=== PATIENT | male | born 1965 | race Caucasian/White ===

== ENCOUNTER → 2018-05-23 | Outpatient (CLI) | payer OTHER | END | disposition home or self-care (01) | LOC: LAB 13:20 | PROVIDERS: ATTEND Internal Medicine Cardiovascular Disease | DX: R00.0 Tachycardia, unspecified (principal) | CPT/HCPCS: 84443 ==

== ENCOUNTER 2019-02-03 21:23 | Inpatient (IN) | payer SELFPAY ==
[~2019-02-03] VITALS: Ht 167.6 cm; Wt 95.4 kg
[2019-02-03 22:00] LABS: BASO # 0.1 x10^3/uL (0.0-0.2); BASO % 1 % (0-3); EOS # 0.4 x10^3/uL (0.0-0.7); EOS % 3 % (0-3); HEMATOCRIT 44.4 % (39.0-53.0); HEMOGLOBIN 15.1 g/dL (13.0-17.5); LYMPH # 2.9 x10^3/uL (1.0-4.8); LYMPH % 23 % (24-48); MEAN CORPUSCULAR HEMOGLOBIN 31 pg (25-35); MEAN CORPUSCULAR HGB CONC 34 g/dL (31-37); MEAN CORPUSCULAR VOLUME 90 fL (79-100); MONO # 1.5 x10^3/uL (0.0-1.1); MONO % 12 % (0-9); NEUT # 7.7 x10^3uL (1.8-7.7); NEUT % 61 % (31-73); PLATELET COUNT 206 x10^3/uL (140-400); RED BLOOD COUNT 4.95 x10^6/uL (4.30-5.70); RED CELL DISTRIBUTION WIDTH 14.5 % (11.5-14.5); WHITE BLOOD COUNT 12.6 x10^3/uL (4.0-11.0)
[2019-02-03] MEDS ORDERED: IV NORMAL SALINE 1,000ML 1,000 ML IV ONE (22:00)
--- NOTE | 2019-02-03 22:02 | PHYS DOC ---
Past History Past Medical History: Diabetes, Pancreatitis Past Surgical History: Appendectomy Alcohol Use: Occasionally Drug Use: None Adult General Chief Complaint Chief Complaint: GI PROBLEM HPI HPI 53-year-old male presents with epigastric pain that he describes as a cramping, moderate in severity. The patient started having pain after drinking Lefty Antonio on Saturday. The patient does not normally drink every day. He had pancreatitis several months ago after drinking alcohol. He is concerned this could be pancreatitis again. Denies vomiting but does have nausea. The patient is diabetic. He has been taking his medications, but states he has not been checking his blood sugar because he ran out of strips. He denies fever or chills. Denies diarrhea or constipation. Review of Systems Review of Systems Constitutional: Denies fever or chills [] Eyes: Denies change in visual acuity, redness, or eye pain [] HENT: Denies nasal congestion or sore throat [] Respiratory: Denies cough or shortness of breath [] Cardiovascular: No additional information not addressed in HPI [] GI: Epigastric abdominal pain, nausea. Denies vomiting, bloody stools or diarrhea [] : Denies dysuria or hematuria [] Musculoskeletal: Denies back pain or joint pain [] Integument: Denies rash or skin lesions [] Neurologic: Denies headache, focal weakness or sensory changes [] Endocrine: Denies polyuria or polydipsia [] All other systems were reviewed and found to be within normal limits, except as documented in this note. Current Medications Current Medications Current Medications Medications (Trade) Dose Ordered Sig/Rani Start Time Stop Time Status Last Admin Dose Admin Sodium Chloride 1,000 ml @ 1,000 mls/hr 1X ONCE 02/03/19 22:00 02/03/19 22:59 02/03/19 21:49 1,000 MLS/HR Allergies Allergies Allergies Coded Allergies Type Severity Reaction Last Updated Verified No Known Drug Allergies 02/03/19 No Physical Exam Physical Exam Constitutional: Well developed, well nourished, no acute distress, non-toxic appearance. [] HENT: Normocephalic, atraumatic, bilateral external ears normal, oropharynx moist, no oral exudates, nose normal. [] Eyes: PERRLA, EOMI, conjunctiva normal, no discharge. [] Neck: Normal range of motion, no tenderness, supple, no stridor. [] Cardiovascular:Heart rate regular rhythm, no murmur [] Lungs & Thorax: Bilateral breath sounds clear to auscultation [] Abdomen: Bowel sounds normal, soft, mild epigastric tenderness, no masses, no pulsatile masses. [] Skin: Warm, dry, no erythema, no rash. [] Back: No tenderness, no CVA tenderness. [] Extremities: No tenderness, no cyanosis, no clubbing, ROM intact, no edema. [] Neurologic: Alert and oriented X 3, normal motor function, normal sensory function, no focal deficits noted. [] Psychologic: Affect normal, judgement normal, mood normal. [] Current Patient Data Vital Signs Vital Signs Date Time Temp Pulse Resp B/P (MAP) Pulse Ox O2 Delivery O2 Flow Rate FiO2 02/03/19 21:28 99.1 111 18 95 Room Air EKG EKG [] Radiology/Procedures Radiology/Procedures [] Course & Med Decision Making Course & Med Decision Making Pertinent Labs and Imaging studies reviewed. (See chart for details) The patient's labs significant for an elevated blood sugar of 150. His lipase is also over 2000. This appears to be pancreatitis. He does not have a fever. I given the patient Zofran for his nausea and morphine for pain. I will place standing orders for him for his admission. I discussed the patient with Dr. Rolle and he has accepted the patient for admission. [] Dragon Disclaimer Dragon Disclaimer This electronic medical record was generated, in whole or in part, using a voice recognition dictation system. Departure Departure: Impression: Primary Impression: Pancreatitis Disposition: ADMITTED INPATIENT Admitting Physician: Breanna Rolle Condition: STABLE Referrals: GEOVANNA BAUTISTA MD (PCP) Problem Qualifiers Primary Impression: Pancreatitis Chronicity: acute Pancreatitis type: alcohol induced Acute pancreatitis complication: unspecified Qualified Codes: K85.20 - Alcohol induced acute pancreatitis without necrosis or infection RENETTA MADDEN DO Feb 03, 2019 22:02
[2019-02-03 22:07] LABS: BILIRUBIN,URINE NEG (NEG); CLARITY,URINE CLEAR; COLOR,URINE YELLOW; GLUCOSE,URINE NEG (NEG); NITRITE,URINE NEG (NEG); UROBILINOGEN,URINE 1 mg/dL (0.2 mg/dL)
[2019-02-03 22:13] LABS: ALBUMIN 3.5 g/dL (3.4-5.0); ALBUMIN/GLOBULIN RATIO 0.9 (1.0-1.7); CREATININE 0.9 mg/dL (0.7-1.3); POTASSIUM 4.4 mmol/L (3.5-5.1); TOTAL BILIRUBIN 0.3 mg/dL (0.2-1.0); TOTAL PROTEIN 7.2 g/dL (6.4-8.2)
[2019-02-03] MEDS ORDERED: ONDANSETRON PF 4 MG/2 ML VIAL. IV ONE (22:15)
[2019-02-03] MEDS ORDERED: MORPHINE SULFATE 2 MG/ML DISP.SYRIN. IV ONE (22:15)
[2019-02-03 22:17] LABS: BACTERIA,URINE 0 /HPF (0-FEW); RBC,URINE 0 /HPF (0-2); SQUAMOUS EPITHELIAL CELL,UR OCC /LPF; WBC,URINE 0 /HPF (0-4)
[2019-02-03] MEDS: IV NORMAL SALINE 1,000ML 1,000 ML IV SCH (22:53)
[2019-02-03] MEDS ORDERED: ONDANSETRON PF 4 MG/2 ML VIAL. IV PRN (23:00)
[2019-02-03] MEDS ORDERED: MORPHINE SULFATE 4 MG/ML DISP.SYRIN. IV ONE (23:45)
[2019-02-04 00:12] VITALS: BP 136/89
[2019-02-04] MEDS ORDERED: GLIP5TAB10 PO (00:22)
[2019-02-04] MEDS ORDERED: DIVA500T2 PO (00:22)
[2019-02-04] MEDS ORDERED: METF500T16 PO (00:22)
[2019-02-04] MEDS ORDERED: PIOG30TA62 PO (00:22)
[2019-02-04] MEDS ORDERED: SIMV40TA3 PO (00:22)
[2019-02-04] MEDS ORDERED: METF10007 PO (00:22)
[2019-02-04] MEDS ORDERED: LISI2.5T PO (00:22)
[2019-02-04] MEDS ORDERED: FLUO20CA8 PO (00:22)
[2019-02-04] MEDS: MORPHINE SULFATE 4 MG/ML DISP.SYRIN. IV PRN ×6 (01:07→20:42)
[2019-02-04 06:23] VITALS: BP 129/76
[2019-02-04] MEDS: IV NORMAL SALINE 1,000ML 1,000 ML IV SCH ×3 (06:28→20:41)
[2019-02-04 11:17] VITALS: BP 120/81
[2019-02-04] MEDS ORDERED: IOHEXOL 240 MG/ML 50ML VIAL. ONE (11:55)
--- NOTE | 2019-02-04 13:25 | HP ---
ADMIT DATE: 02/03/2019 HISTORY OF PRESENT ILLNESS: A 53-year-old male came in through the Emergency Room with abdominal pain. The patient had marked bloating, distention of his abdominal pain, epigastric pain and drinking fairly heavily with Lefty toure couple of days before. 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 In any case, the patient came in, he was admitted to the hospital for further evaluation. The patient is a diabetic. The patient had some nausea, but no vomiting. PAST MEDICAL HISTORY: Pancreatitis, bipolar, ED, hypertension, diabetes, alcohol abuse, tobacco abuse. ALLERGIES: No known drug allergies. MEDICATIONS: Zocor 40, lisinopril 2.5, Depakote 500 daily, Prozac 20, metformin 1000, pioglitazone 30. The patient otherwise continued to be monitored carefully, make further evaluation on that aspect. FAMILY HISTORY: Noncontributory. REVIEW OF SYSTEMS: Positive for abdominal pain with some nausea. Otherwise, denies chest pain, shortness of breath. Denies headaches, visual change, blurred vision, double vision. Denies any melena, hematochezia, hematemesis and neurologically baseline. PHYSICAL EXAMINATION: GENERAL: Pleasant white male, in moderate amount of distress. VITAL SIGNS: Blood pressure 120/80, respiratory rate 20, pulse 92, afebrile. HEENT: The patient's head was atraumatic, normocephalic. Eyes: PERRLA without jaundice. The mouth and throat were normal. NECK: Supple. LUNGS: Clear. CARDIOVASCULAR: Regular sinus rhythm. ABDOMEN: Markedly protuberant, soft, but tender in the epigastric area with slight guarding, but no rebounding, positive bowel sounds, overall bloating and distention noted. EXTREMITIES: No clubbing, cyanosis or edema. NEUROLOGIC: The patient was alert and oriented x 3. PLAN: The patient will be admitted for further evaluation and treatment thereof of his acute pancreatitis, keep him n.p.o. For the most part clear liquids, perhaps fluids, pain management and monitor electrolytes and make further evaluation, get CT scan of his abdomen and pelvis. GEOVANNA BAUTISTA MD DR: CLAUDIA/merlyn JOB#: [id number] / [id number]
[2019-02-04 13:43] LABS: BARBITURATES NEG (NEG); BENZODIAZEPINES NEG (NEG); CANNABINOIDS NEG (NEG); COCAINE NEG (NEG); METHADONE NEG (NEG); OPIATES POS (NEG); PHENCYCLIDINE NEG (NEG)
[2019-02-04] MEDS: FLUoxetine HCL 20 MG CAPSULE PO SCH (13:43)
[2019-02-04] MEDS: DIVALPROEX ER 500 MG TAB.ER.24H PO SCH (13:44)
[2019-02-04 13:45] LABS: AMPHETAMINE/METHAMPHETAMINE NEG (NEG)
--- NOTE | 2019-02-04 14:20 | RAD ---
PQRS Compliance statement: One or more of the following individualized dose reduction techniques were utilized for this examination: 1. Automated exposure control. 2. Adjustment of the mA and/or kV according to patient size. 3. Use of iterative reconstruction technique. Indication:Abdominal pain. TECHNIQUE: CT abdomen and pelvis without IV contrast with multiplanar reformats. COMPARISON: None FINDINGS: Limited evaluation of solid abdominal and pelvic organs due to lack of IV contrast. Heart is normal in size. No pericardial or pleural effusion. Mild scarring or subsegmental atelectasis in the lung bases. Noncontrast appearance of the liver, spleen, gallbladder, adrenals and right kidney within normal limits. Simple cyst in the left kidney measuring 2.2 cm. Edema is seen in the pancreatic tail and peripancreatic soft tissue. No peripancreatic fluid collection. No enlarged retroperitoneal or pelvic adenopathy. No free pelvic fluid or ascites. The prostate and seminal vesicles show no large mass. Moderate right inguinal hernia is seen containing fat and small bowel. Small fat-containing left inguinal hernia. No bowel obstruction. Urinary bladder within normal limits. No pneumoperitoneum. No suspicious bony lesion. IMPRESSION: Limited evaluation of solid abdominal and pelvic organs due to lack of IV contrast. 1. Findings of acute interstitial edematous pancreatitis involving pancreatic tail. 2. Moderate-sized right inguinal hernia containing distal small bowel and fat. No bowel obstruction. Electronically signed by: Gurdeep Melara DO (02/04/2019 2:17 PM) [facility]
[2019-02-04 15:03] VITALS: BP 128/82
[2019-02-04 19:58] VITALS: BP 134/82
[2019-02-04 22:59] VITALS: BP 118/78
[2019-02-05] MEDS ORDERED: IV NORMAL SALINE 1,000ML 1,000 ML IV SCH (04:00)
[2019-02-05 06:07] VITALS: BP 147/87
[2019-02-05 06:23] LABS: BASO % 1 % (0-3); EOS # 0.3 x10^3/uL (0.0-0.7); EOS % 4 % (0-3); HEMATOCRIT 37.4 % (39.0-53.0); HEMOGLOBIN 12.6 g/dL (13.0-17.5); LYMPH # 1.7 x10^3/uL (1.0-4.8); LYMPH % 28 % (24-48); MEAN CORPUSCULAR HEMOGLOBIN 31 pg (25-35); MEAN CORPUSCULAR HGB CONC 34 g/dL (31-37); MEAN CORPUSCULAR VOLUME 90 fL (79-100); MONO # 0.8 x10^3/uL (0.0-1.1); MONO % 14 % (0-9); NEUT # 3.2 x10^3uL (1.8-7.7); NEUT % 53 % (31-73); PLATELET COUNT 174 x10^3/uL (140-400); RED BLOOD COUNT 4.14 x10^6/uL (4.30-5.70); RED CELL DISTRIBUTION WIDTH 13.9 % (11.5-14.5); WHITE BLOOD COUNT 5.9 x10^3/uL (4.0-11.0)
[2019-02-05 06:24] LABS: CALCIUM 7.9 mg/dL (8.5-10.1); CREATININE 0.6 mg/dL (0.7-1.3); POTASSIUM 3.9 mmol/L (3.5-5.1)
[2019-02-05] MEDS: FLUoxetine HCL 20 MG CAPSULE PO SCH (08:31)
[2019-02-05] MEDS: DIVALPROEX ER 500 MG TAB.ER.24H PO SCH (08:31)
[2019-02-05 11:00] VITALS: BP 147/88
[2019-02-05] MEDS ORDERED: LISINOPRIL 2.5 MG TABLET PO SCH (11:00)
[2019-02-05] MEDS ORDERED: LIPA1CAP6 PO (12:55)
== END 2019-02-05 13:30 | disposition home or self-care (01) | DRG 440 ==
LOC: ER 21:23 → 1 SOUTH 23:00
PROVIDERS: ADMIT Family Medicine; ATTEND Family Medicine
DX: K85.90 Acute pancreatitis without necrosis or infection, unspecified (principal); K85.20 Alcohol induced acute pancreatitis without necrosis or infection; E11.9 Type 2 diabetes mellitus without complications; F31.9 Bipolar disorder, unspecified; I10 Essential (primary) hypertension; Z87.891 Personal history of nicotine dependence; Z90.49 Acquired absence of other specified parts of digestive tract; F10.10 Alcohol abuse, uncomplicated
CPT/HCPCS: 36415; 74176; 80048; 80053; 80307; 81001; 82947; 83690; 85025; 96361; 96374; 96375; 96376; J2270; J2405; 99285-25; J7030

== ENCOUNTER 2019-02-06 22:44 | Emergency (ER) | payer SELFPAY ==
[~2019-02-06] VITALS: Ht 167.6 cm; Wt 95.3 kg
[~2019-02-06 22:44] MED LIST: DIVA500T2 PO; FLUO20CA8 PO; GLIP5TAB10 PO; LIPA1CAP6 PO; LISI2.5T PO; METF10007 PO; METF500T16 PO; PIOG30TA62 PO; SIMV40TA3 PO
[2019-02-06 23:00] VITALS: BP 164/100
[2019-02-06] MEDS ORDERED: HYDROcodone/APAP 5/325MG 1 TAB TABLET PO ONE (23:00)
[2019-02-06] MEDS ORDERED: IV NORMAL SALINE 1,000ML 1,000 ML IV ONE (23:15)
[2019-02-06 23:45] LABS: BASO # 0.1 x10^3/uL (0.0-0.2); BASO % 1 % (0-3); EOS # 0.5 x10^3/uL (0.0-0.7); EOS % 5 % (0-3); HEMATOCRIT 42.9 % (39.0-53.0); HEMOGLOBIN 14.5 g/dL (13.0-17.5); LYMPH # 2.2 x10^3/uL (1.0-4.8); LYMPH % 25 % (24-48); MEAN CORPUSCULAR HEMOGLOBIN 31 pg (25-35); MEAN CORPUSCULAR HGB CONC 34 g/dL (31-37); MEAN CORPUSCULAR VOLUME 91 fL (79-100); MONO # 1.1 x10^3/uL (0.0-1.1); MONO % 12 % (0-9); NEUT # 5.1 x10^3uL (1.8-7.7); NEUT % 57 % (31-73); PLATELET COUNT 243 x10^3/uL (140-400); RED BLOOD COUNT 4.69 x10^6/uL (4.30-5.70); RED CELL DISTRIBUTION WIDTH 14.2 % (11.5-14.5)
[2019-02-06 23:56] LABS: ALBUMIN 2.9 g/dL (3.4-5.0); ALBUMIN/GLOBULIN RATIO 0.8 (1.0-1.7); CALCIUM 8.7 mg/dL (8.5-10.1); CREATININE 0.8 mg/dL (0.7-1.3); GFR 101.9; POTASSIUM 3.9 mmol/L (3.5-5.1); TOTAL BILIRUBIN 0.2 mg/dL (0.2-1.0); TOTAL PROTEIN 6.5 g/dL (6.4-8.2)
[2019-02-07] MEDS ORDERED: HYDR-3165 PO (00:29)
--- NOTE | 2019-02-07 00:29 | PHYS DOC ---
Past History Past Medical History: Diabetes, Pancreatitis Past Surgical History: Appendectomy Alcohol Use: Occasionally Drug Use: None Adult General Chief Complaint Chief Complaint: ABDOMINAL PAIN HPI HPI 53-year-old male presents with abdominal pain rating through to his back. The patient states this pain is similar to the pain with his recent pancreatitis. The patient was just discharged yesterday after acute pancreatitis. He was only on a liquid diet in the hospital. His pain came back when he started eating solid foods. The patient was told by his physician that there is nothing to do at this time, but to let the pancreas heal on their own. He was told he might need pain medication if his pain returned. The patient presents because of pain and would like pain medication. He denies fever or chills. Review of Systems Review of Systems Constitutional: Denies fever or chills [] Eyes: Denies change in visual acuity, redness, or eye pain [] HENT: Denies nasal congestion or sore throat [] Respiratory: Denies cough or shortness of breath [] Cardiovascular: No additional information not addressed in HPI [] GI: Epigastric abdominal pain, nausea, vomiting, bloody stools or diarrhea [] : Denies dysuria or hematuria [] Musculoskeletal: Thoracic back pain [] Integument: Denies rash or skin lesions [] Neurologic: Denies headache, focal weakness or sensory changes [] Endocrine: Denies polyuria or polydipsia [] All other systems were reviewed and found to be within normal limits, except as documented in this note. Current Medications Current Medications Current Medications Medications (Trade) Dose Ordered Sig/Rani Start Time Stop Time Status Last Admin Dose Admin Acetaminophen/ Hydrocodone Bitart (Lortab 5/325) 1 tab 1X ONCE 02/06/19 23:00 02/06/19 22:57 DC Sodium Chloride 1,000 ml @ 1,000 mls/hr 1X ONCE 02/06/19 23:15 02/07/19 00:15 DC 02/06/19 23:25 1,000 MLS/HR Allergies Allergies Allergies Coded Allergies Type Severity Reaction Last Updated Verified No Known Drug Allergies 02/03/19 No Physical Exam Physical Exam Constitutional: Well developed, well nourished, no acute distress, non-toxic appearance. [] HENT: Normocephalic, atraumatic, bilateral external ears normal, oropharynx moist, no oral exudates, nose normal. [] Eyes: PERRLA, EOMI, conjunctiva normal, no discharge. [] Neck: Normal range of motion, no tenderness, supple, no stridor. [] Cardiovascular:Heart rate regular rhythm, no murmur [] Lungs & Thorax: Bilateral breath sounds clear to auscultation [] Abdomen: Bowel sounds normal, soft, mild epigastric tenderness, no masses, no pulsatile masses. [] Skin: Warm, dry, no erythema, no rash. [] Back: No tenderness, no CVA tenderness. [] Extremities: No tenderness, no cyanosis, no clubbing, ROM intact, no edema. [] Neurologic: Alert and oriented X 3, normal motor function, normal sensory function, no focal deficits noted. [] Psychologic: Affect normal, judgement normal, mood normal. [] Current Patient Data Vital Signs Vital Signs Date Time Temp Pulse Resp B/P (MAP) Pulse Ox O2 Delivery O2 Flow Rate FiO2 02/06/19 23:00 97.9 86 24 164/100 (121) 95 Room Air Lab Results Laboratory Tests Test 02/06/19 23:30 White Blood Count 9.0 x10^3/uL (4.0-11.0) Red Blood Count 4.69 x10^6/uL (4.30-5.70) Hemoglobin 14.5 g/dL (13.0-17.5) Hematocrit 42.9 % (39.0-53.0) Mean Corpuscular Volume 91 fL (79-100) Mean Corpuscular Hemoglobin 31 pg (25-35) Mean Corpuscular Hemoglobin Concent 34 g/dL (31-37) Red Cell Distribution Width 14.2 % (11.5-14.5) Platelet Count 243 x10^3/uL (140-400) Neutrophils (%) (Auto) 57 % (31-73) Lymphocytes (%) (Auto) 25 % (24-48) Monocytes (%) (Auto) 12 % (0-9) H Eosinophils (%) (Auto) 5 % (0-3) H Basophils (%) (Auto) 1 % (0-3) Neutrophils # (Auto) 5.1 x10^3uL (1.8-7.7) Lymphocytes # (Auto) 2.2 x10^3/uL (1.0-4.8) Monocytes # (Auto) 1.1 x10^3/uL (0.0-1.1) Eosinophils # (Auto) 0.5 x10^3/uL (0.0-0.7) Basophils # (Auto) 0.1 x10^3/uL (0.0-0.2) Sodium Level 138 mmol/L (136-145) Potassium Level 3.9 mmol/L (3.5-5.1) Chloride Level 102 mmol/L (98-107) Carbon Dioxide Level 27 mmol/L (21-32) Anion Gap 9 (6-14) Blood Urea Nitrogen 8 mg/dL (8-26) Creatinine 0.8 mg/dL (0.7-1.3) Estimated GFR (Cockcroft-Gault) 101.9 BUN/Creatinine Ratio 10 (6-20) Glucose Level 185 mg/dL (70-99) H Calcium Level 8.7 mg/dL (8.5-10.1) Total Bilirubin 0.2 mg/dL (0.2-1.0) Aspartate Amino Transferase (AST) 14 U/L (15-37) L Alanine Aminotransferase (ALT) 17 U/L (16-63) Alkaline Phosphatase 52 U/L (46-116) Total Protein 6.5 g/dL (6.4-8.2) Albumin 2.9 g/dL (3.4-5.0) L Albumin/Globulin Ratio 0.8 (1.0-1.7) L Lipase 344 U/L (73-393) EKG EKG [] Radiology/Procedures Radiology/Procedures [] Course & Med Decision Making Course & Med Decision Making Pertinent Labs and Imaging studies reviewed. (See chart for details) Patient's labs are unremarkable. The patient's lipase is significantly improved from when I saw him before his admission. I will discharge him on [place] 5/325 for his discomfort. I further advised him to simplify his diet and likely continue liquids for another couple of days before reintroducing solid foods. He'll follow-up with his primary care physician as needed. He is stable for discharge at this time. [] Dragon Disclaimer Dragon Disclaimer This electronic medical record was generated, in whole or in part, using a voice recognition dictation system. Departure Departure: Impression: Primary Impression: Epigastric abdominal pain Disposition: HOME, SELF-CARE Condition: STABLE Referrals: GEOVANNA BAUTISTA MD (PCP) Patient Instructions: Acute Pancreatitis, [facility] Scripts Hydrocodone Bit/Acetaminophen (NORCO 5-325 TABLET) 1 Each Tablet 1 TAB PO PRN Q6HRS PRN for PAIN, #10 TAB 0 Refills Prov: RENETTA MADDEN DO 02/07/19 RENETTA MADDEN DO Feb 07, 2019 00:29
[2019-02-07] MEDS ORDERED: KETOROLAC 30 MG/ML VIAL. IV ONE (00:30)
== END 2019-02-07 00:44 | disposition home or self-care (01) ==
LOC: ER 22:44
DX: R10.13 Epigastric pain (principal); R11.2 Nausea with vomiting, unspecified; M54.6 Pain in thoracic spine; R19.7 Diarrhea, unspecified; E11.9 Type 2 diabetes mellitus without complications
CPT/HCPCS: 36415; 80053; 83690; 85025; 96361; 96374; 99284; J1885; J7030

== ENCOUNTER 2019-02-16 22:53 | Inpatient (IN) | payer SELFPAY ==
[~2019-02-16] VITALS: Ht 167.6 cm; Wt 95.8 kg
[~2019-02-16 22:53] MED LIST changes: +HYDR-3165 PO
[2019-02-17] VITALS (14 sets, daily range): BP systolic 123–160; BP diastolic 59–92
[2019-02-17] MEDS ORDERED: IV NORMAL SALINE 1,000ML 1,000 ML IV SCH ×2 (00:30→02:19)
[2019-02-17] MEDS ORDERED: ASPIRIN 81 MG TAB.CHEW PO ONE (00:30)
--- NOTE | 2019-02-17 01:20 | PHYS DOC ---
Past History Past Medical History: Diabetes, High Cholesterol, Hypertension, Pancreatitis Past Surgical History: Appendectomy Alcohol Use: Occasionally Drug Use: None Adult General Chief Complaint Chief Complaint: SHORTNESS OF BREATH HPI HPI Patient is a 53-year-old male presents with shortness of breath that began while he was sitting after supper. Nothing makes the symptoms better or worse. No change with exertion or body position. No cough. No fever. No leg swelling. No nausea or vomiting. No PE risk factors.[] Review of Systems Review of Systems Constitutional: Denies fever or chills [] Eyes: Denies change in visual acuity, redness, or eye pain [] HENT: Denies nasal congestion or sore throat [] Respiratory: Denies cough, see history of present illness[] Cardiovascular: No no chest pain or palpitations[] GI: Denies abdominal pain, nausea, vomiting, bloody stools or diarrhea [] : Denies dysuria or hematuria [] Musculoskeletal: Denies back pain or joint pain [] Integument: Denies rash or skin lesions [] Neurologic: Denies headache, focal weakness or sensory changes [] Endocrine: Denies polyuria or polydipsia [] All other systems were reviewed and found to be within normal limits, except as documented in this note. Current Medications Current Medications Current Medications Medications (Trade) Dose Ordered Sig/Rani Start Time Stop Time Status Last Admin Dose Admin Aspirin (Children'S Aspirin) 324 mg 1X ONCE 02/17/19 00:30 02/17/19 00:31 DC 02/17/19 01:12 324 MG Sodium Chloride 1,000 ml @ 100 mls/hr Q10H 02/17/19 00:30 02/17/19 10:29 02/17/19 01:12 100 MLS/HR Allergies Allergies Allergies Coded Allergies Type Severity Reaction Last Updated Verified No Known Drug Allergies 02/03/19 No Physical Exam Physical Exam Constitutional: Well developed, well nourished, no acute distress, non-toxic appearance. [] HENT: Normocephalic, atraumatic, bilateral external ears normal, oropharynx moist, no oral exudates, nose normal. [] Eyes: PERRLA, EOMI, conjunctiva normal, no discharge. [] Neck: Normal range of motion, no tenderness, supple, no stridor. [] Cardiovascular:Heart rate is tachycardic with a regular rhythm, no murmur [] Lungs & Thorax: Bilateral breath sounds clear to auscultation [] Abdomen: Bowel sounds normal, soft, no tenderness, no masses, no pulsatile nya s. [] Skin: Warm, dry, no erythema, no rash. [] Back: No tenderness, no CVA tenderness. [] Extremities: No tenderness, no cyanosis, no clubbing, ROM intact, no edema. [] Neurologic: Alert and oriented X 3, normal motor function, normal sensory function, no focal deficits noted. [] Psychologic: Affect normal, judgement normal, mood normal. [] Current Patient Data Vital Signs Vital Signs Date Time Temp Pulse Resp B/P (MAP) Pulse Ox O2 Delivery O2 Flow Rate FiO2 02/16/19 23:07 99.3 114 18 95 Room Air EKG EKG EKG shows a sinus tachycardia at 112 bpm, left axis, QTC 477 ms, no ST elevation, some ST depression laterally.[] Radiology/Procedures Radiology/Procedures Chest x-ray shows no infiltrate, no effusion, no pneumothorax[] Course & Med Decision Making Course & Med Decision Making Pertinent Labs and Imaging studies reviewed. (See chart for details) ED course: Patient arrived, was placed in bed, and tolerated exam well. He was given potassium and magnesium to replace the slow levels. Patient continues to run a tachycardia despite IV fluids. Discussed options with patient, and elected to admit him for further evaluation of this shortness of breath as well as further evaluation of the laboratory abnormalities. Consultation was made with his primary care physician who graciously accepted him for admission. He was admitted in improved condition. Medical decision making: Uncertain as to the cause of the shortness of breath. There is no evidence of a pulmonary embolism. This does not appear to be an acute coronary syndrome. He does have hypokalemia and hypomagnesemia as well as a tachycardia with IV fluids. The tachycardia did improve but continues at a low level. He is being admitted for further evaluation and treatment.[] Dragon Disclaimer Dragon Disclaimer This electronic medical record was generated, in whole or in part, using a voice recognition dictation system. Departure Departure: Impression: Primary Impression: Shortness of breath Additional Impressions: Hypokalemia Hypomagnesemia Diabetes mellitus Disposition: ADMITTED INPATIENT Admitting Physician: Geovanna Dejesus Condition: IMPROVED Referrals: GEOVANNA DEJESUS MD (PCP) Problem Qualifiers Additional Impressions: BETTY GAXIOLA DO Feb 17, 2019 01:20
[2019-02-17 01:21] LABS: BASO % 0 % (0-3); EOS # 0.7 x10^3/uL (0.0-0.7); EOS % 6 % (0-3); HEMOGLOBIN 14.7 g/dL (13.0-17.5); LYMPH # 3.8 x10^3/uL (1.0-4.8); LYMPH % 33 % (24-48); MEAN CORPUSCULAR HEMOGLOBIN 30 pg (25-35); MEAN CORPUSCULAR HGB CONC 34 g/dL (31-37); MEAN CORPUSCULAR VOLUME 90 fL (79-100); MONO # 0.8 x10^3/uL (0.0-1.1); MONO % 7 % (0-9); NEUT # 6.1 x10^3uL (1.8-7.7); NEUT % 54 % (31-73); PLATELET COUNT 321 x10^3/uL (140-400); RED BLOOD COUNT 4.88 x10^6/uL (4.30-5.70); RED CELL DISTRIBUTION WIDTH 13.9 % (11.5-14.5); WHITE BLOOD COUNT 11.5 x10^3/uL (4.0-11.0)
[2019-02-17 01:29] LABS: BGAS PH 7.32 (7.35-7.46)
[2019-02-17 01:44] LABS: ALBUMIN 3.2 g/dL (3.4-5.0); ALBUMIN/GLOBULIN RATIO 0.9 (1.0-1.7); CALCIUM 8.4 mg/dL (8.5-10.1); CREATININE 0.6 mg/dL (0.7-1.3); MAGNESIUM 1.7 mg/dL (1.8-2.4); TOTAL BILIRUBIN 0.1 mg/dL (0.2-1.0); TOTAL PROTEIN 6.6 g/dL (6.4-8.2)
[2019-02-17 01:50] LABS: POTASSIUM 2.8 mmol/L (3.5-5.1)
[2019-02-17] MEDS ORDERED: MAGNESIUM SULFATE 1GM 100 ML IV ONE ×2 (02:13→02:30)
[2019-02-17] MEDS ORDERED: ACETAMINOPHEN 325 MG TABLET PO PRN (02:30)
[2019-02-17] MEDS ORDERED: ONDANSETRON PF 4 MG/2 ML VIAL. IV PRN (02:30)
[2019-02-17] MEDS ORDERED: POTASSIUM CHLORIDE 20 MEQ TABLET.ER. PO ONE (02:30)
--- NOTE | 2019-02-17 03:19 | EKG ---
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
--- NOTE | 2019-02-17 03:30 | NUR ---
The patient, XI LOPEZ, 53 y/o, M admitted by GEOVANNA BAUTISTA MD, was given written information regarding hospital policies, unit procedures and contact persons. Patient admitted with Shortness of Breath, Hypokalemia, Hypomagnesemia,DM. Patient alert and oriented x 4. Patient oriented to room, call light, bed and plan of care. Patient instructed to call for assistance and order for bedrest. Patient verbalized understanding. Call light in reach, will monitor. Valuables were checked and Patient declined lock up of valuables with security.
[2019-02-17] MEDS ORDERED: GLYB5TAB3 PO (04:41)
--- NOTE | 2019-02-17 05:11 | NUR ---
Dr. Dsouza ordered QID instead of QID prn, RN said she couldn't change order since she didn't hear clarification herself. Please change to QID prn
--- NOTE | 2019-02-17 05:38 | RAD ---
PA and lateral chest. HISTORY: Short of breath, chest discomfort PA and lateral views were taken of the chest. Lungs are free of confluent infiltrates. There is minimal linear scarring or atelectasis at the left costophrenic angle. Heart is normal in size. There is no pleural effusion. IMPRESSION: 1. No acute chest disease. Electronically signed by: Paulo Melendez MD (02/17/2019 5:35 AM) [facility]
[2019-02-17] MEDS: IPRATRPIUM/ALBUTEROL 0.5/2.5MG 3 ML NEBU. NEB SCH ×4 (08:00→20:00)
[2019-02-17] MEDS ORDERED: metFORMIN 500 MG TABLET PO SCH (08:00)
[2019-02-17] MEDS ORDERED: HYDROcodone/APAP 5/325MG 1 TAB TABLET PO PRN (08:45)
[2019-02-17] MEDS ORDERED: ELECTROLYTE (ICU) PROTOCOL. MC PRN (08:45)
[2019-02-17 10:36] LABS: CREATININE 0.6 mg/dL (0.7-1.3); POTASSIUM 3.4 mmol/L (3.5-5.1)
[2019-02-17] MEDS ORDERED: PIP/TAZO PER PHARMACY MC PRN (10:45)
--- NOTE | 2019-02-17 10:50 | NUR ---
NSG NOTE; TRANSFER TO ICU AT 1045 VIA W/C ACCOMP BY STAFF. REPORT CALLED TO ANDREW PETER AT 103
[2019-02-17] MEDS ORDERED: PIPERACILLIN/TAZOBACTAM 4.5 GM in IV NORMAL SALINE 50ML 50 ML IV ONE (11:00)
[2019-02-17] MEDS ORDERED: DEXTROSE 50% 25 GM / 50ML DISP.SYRIN. IV PRN (11:15)
[2019-02-17] MEDS: IV NORMAL SALINE 1,000ML 1,000 ML IV SCH ×4 (11:25→23:38)
[2019-02-17] MEDS ORDERED: VANCOMYCIN 2 GM in IV NORMAL SALINE 500ML 500 ML IV ONE (12:00)
[2019-02-17] MEDS: INSULIN LISPRO 300 UNITS/3 ML VIAL. SQ SCH ×2 (12:00→17:00)
[2019-02-17] MEDS: VANCOMYCIN PER PHARMACY MC PRN ×2 (12:19→12:21)
--- NOTE | 2019-02-17 12:20 | NUR ---
Pharmacy Vancomycin Dosing Note S:Consulted to monitor and dose vancomycin started 02/17/19. O:XI LOPEZ is a 53 year old M with , ELEVATED LACTIC ACID . Height: 5 feet, 6 inches Weight: 94.413557 kg [place] Body Weight: 63.80 Adjusted Body Weight: 76.20 Dosing Weight: Actual Other Antibiotics: ZOSYN LABS: Last BUN: 5 Last Creatinine: 0.6 Creatinine Clearance: 154 Last WBC: 11.5 Last Procalcitonin: Tmax (past 24 hours): Microbiology: I/O: Drug Levels: Last level: on at Last dose given at Vancomycin Dosing: Loading Dose: 2000 mg x1 Dosing Weight: Actual Target Trough: 15-20 A: Based on: PHYSICIAN REQUEST FOR PHARMACY TO DOSE P: 1. Begin Vancomycin 2000mg loading dose, then 1500 mg IV q8h 2. Follow up Trough level on 02/18/19 at 1130 3. Pharmacy will continue to monitor, follow and adjust therapy as needed. ANTOINE AGARWAL, 02/17/19 1220
[2019-02-17 12:38] LABS: BILIRUBIN,URINE NEG (NEG); CLARITY,URINE CLEAR; COLOR,URINE YELLOW; GLUCOSE,URINE 250 mg/dL (NEG); NITRITE,URINE NEG (NEG); UROBILINOGEN,URINE 0.2 mg/dL (0.2 mg/dL)
[2019-02-17 12:39] LABS: BACTERIA,URINE FEW /HPF (0-FEW); RBC,URINE 0 /HPF (0-2); SQUAMOUS EPITHELIAL CELL,UR OCC /LPF
[2019-02-17] MEDS ORDERED: IPRATRPIUM/ALBUTEROL 0.5/2.5MG 3 ML NEBU. NEB PRN (13:00)
--- NOTE | 2019-02-17 14:00 | NUR ---
Notified Dr Dejesus of elevated lactic acid, orders to recheck in 4 hours. Continue IVF and ABT and order CT abdomen and pelvis.
[2019-02-17] MEDS ORDERED: IOHEXOL 240 MG/ML 50ML VIAL. PO ONE (14:45)
[2019-02-17] MEDS ORDERED: IOHEXOL 350 MG/ML 100 ML VIAL. IV ONE (14:45)
[2019-02-17] MEDS ORDERED: IOHEXOL 300 MG/ML 75 ML VIAL. IV ONE (14:45)
[2019-02-17] MEDS ORDERED: CONTRAST GIVEN MC PRN (15:00)
[2019-02-17] MEDS ORDERED: PIOGLITAZONE 15 MG TABLET. PO SCH (16:00)
[2019-02-17] MEDS ORDERED: FLUoxetine HCL 20 MG CAPSULE PO SCH (16:00)
[2019-02-17] MEDS ORDERED: SIMVASTATIN 40 MG TABLET. PO SCH (16:00)
[2019-02-17] MEDS ORDERED: LISINOPRIL 2.5 MG TABLET PO SCH (16:00)
[2019-02-17] MEDS ORDERED: DIVALPROEX SODIUM 250 MG TABLET.DR. PO SCH (16:00)
[2019-02-17] MEDS ORDERED: glyBURIDE 5 MG TABLET PO SCH (16:00)
--- NOTE | 2019-02-17 17:47 | RAD ---
Exam: CT abdomen and pelvis with contrast INDICATION: Elevated lactic acid TECHNIQUE: Sequential axial images through the abdomen and pelvis obtained following the administration of 75 mL of Omni 300 IV contrast. Sagittal and coronal reformatted images were reconstructed from the axial data and reviewed. Comparisons: 02/04/2019 FINDINGS: Heart size is normal. No pericardial effusion. Visualized lung bases are clear. No pleural effusion. Liver, spleen, gallbladder and adrenals are unremarkable. There is mild residual inflammatory changes at the pancreatic tail which have improved when compared to the prior CT. No peripancreatic fluid collection. Pancreas demonstrates homogenous enhancement. Kidney demonstrates symmetric enhancement. No perinephric inflammation or hydronephrosis. 1.4 cm hypoattenuating cystic lesion at the anterior midpole the left kidney, likely representing simple cysts. No renal or ureteral calculi are identified. Bladder is distended and appears thin walled. Prostate is not enlarged. Right-sided inguinal hernia containing a moderate length segment of small bowel. No obstruction. Large and small bowel are unremarkable. No obstruction. No free intra-abdominal air or fluid. Abdominal aorta has a normal course and caliber. Abdominal vasculature is patent. No enlarged intra-abdominal lymph nodes are identified. No suspicious osseous lesion or acute fracture. IMPRESSION: 1. Mild residual inflammatory changes at the pancreatic tail which have improved when compared to the prior CT. No peripancreatic fluid collection or evidence of necrosis. 2. No other acute process identified within the abdomen or pelvis. Other stable findings described above. Exposure: One or more of the following in the visualized dose reduction techniques were utilized for this examination: 1. Automated exposure control 2. Adjustment of the MA and/or KV according to patient size 3. Use of iterative of reconstructive technique Electronically signed by: Ji Rosas MD (02/17/2019 5:44 PM) [facility]
[2019-02-17] MEDS: PIPERACILLIN/TAZOBACTAM 4.5 GM in IV NORMAL SALINE 50ML 50 ML IV SCH (18:00)
--- NOTE | 2019-02-17 19:11 | HP ---
ADMIT DATE: 02/17/2019 HISTORY OF PRESENT ILLNESS: A 53-year-old male came in through the Emergency Room having extreme difficulty breathing. The patient had a thorough workup in the Emergency Room and was unable to locate the possible situation of him having such difficulty in breathing. In any case, his oxygen saturation was in a reasonable range, although what was telling was the fact that the patient had elevated lactic acids of 4.2 and 4.8. His white count was slightly elevated at 11.5. His blood gases were basically stable. In any case, the patient was markedly dehydrated as well. The patient was admitted for his marked dyspnea as well as his elevated lactic acids. The patient otherwise continued to be monitored carefully on that. PAST MEDICAL HISTORY: Cardiac disorders, hypercholesterolemia, hypertension, obesity, diabetes, psychiatric problems, affective disorder, bipolar disorder, obsessive-compulsive disorder, depression and influenza vaccine is up-to-date. ALLERGIES: He has no known allergies. MEDICATIONS: Reconciliation of home medications produced; Zocor 40, lisinopril 2.5, hydrocodone, Depakote 500, Prozac 20, metformin 1000, glyburide 5 and pioglitazone 30 mg daily. SOCIAL HISTORY: The patient has had a history of alcohol abuse and tobacco abuse. FAMILY HISTORY: Noncontributory. REVIEW OF SYSTEMS: Presently, the patient just feels weak, short of breath. Denies nausea, vomiting, abdominal pain. Denies any melena, hematochezia, hematemesis. Previously admitted for acute pancreatitis. PHYSICAL EXAMINATION: VITAL SIGNS: The patient's blood pressure is 160/80, respiratory rate 18, pulse 76, afebrile. He is on room air at 95%. HEENT: The patient's head was atraumatic, normocephalic. Eyes: PERRLA without jaundice. Mouth and throat were normal. NECK: Supple, without JVD, carotid bruits or thyromegaly. LUNGS: Diminished throughout, poor movement of air, but clear. CARDIOVASCULAR: Regular sinus rhythm, S1, S2. ABDOMEN: Protuberant, soft, tender in the left upper quadrant. No rebounding, no guarding. Positive bowel sounds, no hepatosplenomegaly was noted. EXTREMITIES: No clubbing, cyanosis, nor edema. NEUROLOGIC: The patient was alert and oriented x 3. LABORATORY DATA: The patient's labs demonstrated has noticed specific gravity at 1.030, elevated lactic acids. White count was elevated as noted earlier. Electrolytes were basically stable as was his GFR. Glucose was elevated approximately on average of 128. Creatinine kinase of 24. We will go ahead and continue to monitor the patient accordingly make further evaluation on him as indicated and placed him on antibiotics because of this elevated lactic acid and we will continue to monitor him accordingly. Also, his metformin was stopped in case that was presenting any problems with lactic acidosis. IMPRESSION: Acute respiratory distress, possible sepsis or systemic inflammatory response syndrome, severe dyspnea, morbid obesity, type 2 diabetes, history of alcohol abuse. PLAN: As above. GEOVANNA BAUTISTA MD DR: CLAUDIA/merlyn JOB#: [id number] / [id number]
[2019-02-17] MEDS: VANCOMYCIN 1.5 GM in IV NORMAL SALINE 500ML 500 ML IV SCH (20:51)
[2019-02-17] MEDS: LACTOBACILLUS RHAMNOSUS GG 1 CAPSULE. PO SCH (20:51)
[2019-02-18] VITALS (7 sets, daily range): BP systolic 117–147; BP diastolic 65–83
[2019-02-18] MEDS: PIPERACILLIN/TAZOBACTAM 4.5 GM in IV NORMAL SALINE 50ML 50 ML IV SCH ×2 (01:32→10:16)
[2019-02-18] MEDS: IV NORMAL SALINE 1,000ML 1,000 ML IV SCH ×3 (02:45→10:16)
[2019-02-18] MEDS: VANCOMYCIN 1.5 GM in IV NORMAL SALINE 500ML 500 ML IV SCH (03:55)
[2019-02-18 06:30] LABS: CALCIUM 7.6 mg/dL (8.5-10.1); CREATININE 0.6 mg/dL (0.7-1.3); POTASSIUM 3.8 mmol/L (3.5-5.1)
[2019-02-18 06:33] LABS: BASO % 1 % (0-3); EOS # 0.5 x10^3/uL (0.0-0.7); EOS % 7 % (0-3); HEMATOCRIT 38.3 % (39.0-53.0); HEMOGLOBIN 12.8 g/dL (13.0-17.5); LYMPH % 30 % (24-48); MEAN CORPUSCULAR HEMOGLOBIN 30 pg (25-35); MEAN CORPUSCULAR HGB CONC 34 g/dL (31-37); MEAN CORPUSCULAR VOLUME 90 fL (79-100); MONO # 0.4 x10^3/uL (0.0-1.1); MONO % 7 % (0-9); NEUT # 3.8 x10^3uL (1.8-7.7); NEUT % 56 % (31-73); PLATELET COUNT 231 x10^3/uL (140-400); RED BLOOD COUNT 4.27 x10^6/uL (4.30-5.70); RED CELL DISTRIBUTION WIDTH 14.5 % (11.5-14.5); WHITE BLOOD COUNT 6.7 x10^3/uL (4.0-11.0)
[2019-02-18] MEDS: INSULIN LISPRO 300 UNITS/3 ML VIAL. SQ SCH (07:26)
[2019-02-18] MEDS: LACTOBACILLUS RHAMNOSUS GG 1 CAPSULE. PO SCH (08:02)
--- NOTE | 2019-02-18 09:00 | NUR ---
Patient doing well this morning, denies SOA or N/V/D. Denies having any abdominal pain or difficulty eating. Patient asked nurse when physician would be in due to hoping to go home today. Explained to patient the physician would be here around lunch time. patient resting in room at this time. Refused shower this AM. Will continue to [facility].
[2019-02-18 12:08] LABS: VANC TR 19.1 mcg/mL (10.0-20.0)
--- NOTE | 2019-02-18 12:18 | NUR ---
Patient reported to nurse that he needs to leave at this time, states he can not wait for the doctor anymore and wishes to leave against medical advice. Nurse explained risks of leaving AMA and not seeing the physician prior to discharge. Patient verbalizes he would like to leave. IV removed at this time. AMA report signed and nurse gave patient information on [facility]. Security called at this time, ambulated off the unit with nurse and security to personal vehicle with belongings in place.
[2019-02-19 04:09] LABS: HEMOGLOBIN A1C 7.5 % (4.8-5.6)
== END 2019-02-18 12:20 | disposition left against medical advice (07) | DRG 872 ==
LOC: ER 22:53 → 1 SOUTH 02-17 02:15 → ICU 02-17 11:31
PROVIDERS: ADMIT Family Medicine; ATTEND Family Medicine
DX: A41.9 Sepsis, unspecified organism (principal); E78.00 Pure hypercholesterolemia, unspecified; E11.9 Type 2 diabetes mellitus without complications; E87.6 Hypokalemia; E83.42 Hypomagnesemia; I10 Essential (primary) hypertension; F31.9 Bipolar disorder, unspecified; F42.9 Obsessive-compulsive disorder, unspecified; E66.01 Morbid (severe) obesity due to excess calories; E86.0 Dehydration; Z90.49 Acquired absence of other specified parts of digestive tract; Z68.34 Body mass index [BMI] 34.0-34.9, adult; Z87.891 Personal history of nicotine dependence; Z53.21 Procedure and treatment not carried out due to patient leaving prior to being seen by health care provider
CPT/HCPCS: 36415; 71046; 74177; 80048; 80053; 80202; 81001; 82550; 82803; 82947; 83036; 83605; 83690; 83735; 83880; 84443; 84484; 85025; 85379; 85610; 85730; 87040; 87641; 93005; 96361; 96365; J1815; J2543; J3370; J3475; J7040; Q9966; Q9967; 99285-25; J7030

== ENCOUNTER 2020-06-21 21:50 | Emergency (ER) | payer SELFPAY ==
[~2020-06-21] VITALS: Ht 167.6 cm; Wt 90.2 kg
[~2020-06-21 21:50] MED LIST changes: +FLUO20CA20 PO; -FLUO20CA8 PO; +GLYB5TAB3 PO; +SIMV40TA18 PO; -SIMV40TA3 PO
[2020-06-21] MEDS ORDERED: MVI, ADULT NO.4 WITH VIT K 10 ML, FOLIC ACID INJ 1 MG, THIAMINE INJ 100 MG in IV RINGER... IV ONE (22:00)
[2020-06-21] MEDS ORDERED: IV RINGERS SOLUTION,LACTATED 1,000 ML IV SCH (22:00)
--- NOTE | 2020-06-21 22:00 | PHYS DOC ---
Past History Past Medical History: Alcoholism, Anxiety, Bipolar, Diabetes, High Cholesterol, Hypertension, Pancreatitis, Other Past Medical History Peripheral Neuropathy Past Surgical History: Appendectomy Smoking: Cigarettes Alcohol Use: Occasionally Drug Use: None General Adult HPI: HPI: " Pt. .."I don't remember.. I did drink pretty heavy earlier.. I do almost every day.. " Patient is a 54 year old male who presents with above hx and complaints ETOH abuse to the point of loss of consciousness when he was outside.. Sister found pt. passed out in the snow. Unknown length of time down. Pt. has hx alcohol abuse. Patient has past medical history of bipolar, anxiety, depression, coronary artery disease, hypercholesterol, hypertension, obesity, diabetes, affective disorder, obsessive-compulsive disorder, peripheral neuropathy, pancreatitis, frequent falls and seizure disorder. Patient has past to follow- up with Dr. Bautista but currently follows at [facility]. Patient also follows at the [facility] for his mental health issues. Patient has had previous admission for excessive alcohol abuse last was on 2018. No recent travel. No specific ill contacts. Patient does continue to smoke. Review of Systems: Review of Systems: Constitutional: Denies fever or chills Eyes: Denies change in visual acuity HENT: Denies nasal congestion or sore throat Respiratory: Denies cough or shortness of breath Cardiovascular: Denies chest pain or edema GI: Denies abdominal pain, nausea, vomiting, bloody stools or diarrhea : Denies dysuria Musculoskeletal: Complains of generalized myalgia and arthralgia Integument: Denies rash Neurologic: Complains of chronic peripheral neuropathy Endocrine: Denies polyuria or polydipsia Lymphatic: Denies swollen glands Psychiatric: History of bipolar disorder, depression or anxiety Family History: Family History: Noncontributory to presentation Current Medications: Current Meds: See nursing for home meds Allergies: Allergies: Allergies Coded Allergies Type Severity Reaction Last Updated Verified No Known Drug Allergies 02/03/19 No Physical Exam: PE: Constitutional: no acute distress, intoxicated in appearance. [] HENT: Normocephalic, atraumatic, bilateral external ears normal, oropharynx moist, no oral exudates, nose normal. [] Eyes: PERRLA, EOMI, conjunctiva normal, no discharge. [] Neck: Normal range of motion, no tenderness, supple, no stridor. [] Cardiovascular:Heart rate regular rhythm, no murmur. PMI to the left Lungs & Thorax: Bilateral breath sounds equal apex with scattered wheezes auscultation [] Abdomen: Bowel sounds normal, soft, no tenderness, no masses, no pulsatile masses. Obese. Old surgery scars Skin: Warm, dry, no erythema, no rash. [] Back: No tenderness, no CVA tenderness. [] Extremities: No tenderness, no cyanosis, no clubbing, ROM intact, no edema. [] Neurologic: Initially decrease level of awareness and discoordinated.. However with hydration and observation patient became alert and oriented X 3, moves all extremities on request, has distal sensory with exception of the peripheral neuropathy and feet, no new focal deficits noted. Peripheral neuropathy to the level of mid [place]. Psychologic: Affect anxious judgement normal, mood depressed, no suicidal or homicidal ideation EKG: EKG: My interpretation EKG shows a sinus rhythm at 70 bpm. No acute morphology. There is some leftward axis. [] Radiology/Procedures: Radiology/Procedures: [][address] [address] IMAGING REPORT Signed PATIENT: XI LOPEZ ACCOUNT: [id number] : 1965 LOCATION: ER AGE: 54 SEX: M EXAM STATUS: REG ER ORD. PHYSICIAN: MARS REID MD REASON: syncope, fall, head and neck pain, intoxicated PROCEDURE: CT HEAD AND CERVICAL SPINE WO CT Head W/O Contrast: History: Reason: syncope, fall, head and neck pain, intoxicated / Spl. Instructions: / History: Comparison: none Axial images were obtained without contrast. The song and white matter appears normal and symmetrical for the patients age. There is no mass effect, extraaxial fluid collections or hydrocephalus. There is no gross bleed. There is no focal loss of song-white matter distinction to suggest acute ischemia, i.e. stroke. Impression: No acute findings. End impression CT C-Spine without contrast: Clinical History: Reason: syncope, fall, head and neck pain, intoxicated / Spl. Instructions: / History: Technique: Axial helical images of the cervical spine were obtained without contrast, axial coronal and sagittal reconstruction was performed. Findings: There is no loss of vertebral body stature. There is no prevertebral soft tissue swelling. The vertebral bodies are well aligned. There is straightening of the normal cervical lordosis which can be positional or could be chronic. The C1-C2 relationship is normal. The visualized osseous structures appear normal. Evaluation of the central canal is limited without contrast. There is multiple posterior disc bulges resulting in flattening of the thecal sac. There does not appear to be gross flattening of the cervical cord. There is moderate narrowing of multiple neuroforamen. Impression: No acute findings. Clinical correlation suggested. PQRS Compliance Statement: One or more of the following individualized dose reduction techniques were utilized for this examination: 1. Automated exposure control 2. Adjustment of the mA and/or kV according to patient size 3. Use of iterative reconstruction technique Electronically signed by: Xi Braun III, MD (06/21/2020 11:20 PM) [facility] DICTATED AND SIGNED BY: XI BRAUN III, MD DATE: 06/21/202311 CC: GEOVANNA BAUTISTA MD; MARS REID MD ~[facility] [address] [place] [address] IMAGING REPORT Signed PATIENT: XI LOPEZ ACCOUNT: [id number] : 1965 LOCATION: ER AGE: 54 SEX: M EXAM STATUS: REG ER ORD. PHYSICIAN: MARS REID MD REASON: MSChange, dyspnea PROCEDURE: PORTABLE CHEST 1V XR CHEST 1V INDICATION: Reason: MSChange, dyspnea / Spl. Instructions: / History: . COMPARISON STUDY: None. FINDINGS: Lungs: Normal lung volume. No pulmonary mass or consolidation. The tracheobronchial tree and hilar structures are normal. Pleura: No pleural effusion or pneumothorax. Heart and Mediastinum: The cardiomediastinal silhouette is normal. The great vessels of the thorax are normal. Bones and Soft Tissues: The bones and soft tissues are within normal limits. IMPRESSION: No acute cardiopulmonary process. Electronically signed by: Basia Alvarez MD (06/21/2020 10:43 PM) [facility] DICTATED AND SIGNED BY: BASIA ALVAREZ MD DATE: 06/21/20 2242 CC: GEOVANNA BAUTISTA MD; MARS REID MD ~[facility]0 0 Heart Score: HEART Score for Chest Pain: HEART Score for Chest Pain Response (Comments) Value History Slighlty/Non-Suspicious 0 ECG Normal 0 Age >45 - < 65 1 Risk Factors 1 or 2 Risk Factors 1 Troponin < Normal Limit 0 Total 2 Risk Factors: Risk Factors: DM, Current or recent (<one month) smoker, HTN, HLP, family history of CAD, obesity. Risk Scores: Score 0 - 3: 2.5% MACE over next 6 weeks - Discharge Home Score 4 - 6: 20.3% MACE over next 6 weeks - Admit for Clinical Observation Score 7 - 10: 72.7% MACE over next 6 weeks - Early Invasive Strategies Course & Med Decision Making: Course & Med Decision Making Pertinent Labs and Imaging studies reviewed. (See chart for details) Patient encouraged to take a multivitamin daily. Follow-up primary care. Consider alcohol rehab. Keep follow-up with counseling center. Patient return if any concerns. Patient amatory without problems at time of discharge. Was discharged to care of his sister Impression: 1. Alcohol abuse= 255 2. Diabetes 167 3. Hypomagnesium 1.4 4. History of bipolar disorder 5. Tobacco use [] Dragon Disclaimer: Dragon Disclaimer: This electronic medical record was generated, in whole or in part, using a voice recognition dictation system. Departure Departure: Referrals: GEOVANNA BAUTISTA MD (PCP) Dragon Disclaimer This chart was dictated in whole or in part using Voice Recognition software in a busy, high-work load, and often noisy Emergency Department environment. It may contain unintended and wholly unrecognized errors or omissions. Dragon Disclaimer This chart was dictated in whole or in part using Voice Recognition software in a busy, high-work load, and often noisy Emergency Department environment. It may contain unintended and wholly unrecognized errors or omissions. MARS REID MD Jun 21, 2020 22:00
[2020-06-21] MEDS ORDERED: THIAMINE 200 MG/2 ML VIAL. IV ONE ×2 (22:21→23:04)
[2020-06-21 22:32] LABS: CALCIUM 8.4 mg/dL (8.5-10.1); CREATININE 0.8 mg/dL (0.7-1.3); GFR 101.5; POTASSIUM 3.9 mmol/L (3.5-5.1)
[2020-06-21 22:34] LABS: BASO # 0.1 x10^3/uL (0.0-0.2); BASO % 1 % (0-3); EOS # 0.5 x10^3/uL (0.0-0.7); EOS % 5 % (0-3); HEMATOCRIT 47.3 % (39.0-53.0); HEMOGLOBIN 16.1 g/dL (13.0-17.5); LYMPH # 4.1 x10^3/uL (1.0-4.8); LYMPH % 37 % (24-48); MEAN CORPUSCULAR HEMOGLOBIN 31 pg (25-35); MEAN CORPUSCULAR HGB CONC 34 g/dL (31-37); MEAN CORPUSCULAR VOLUME 91 fL (79-100); MONO # 0.9 x10^3/uL (0.0-1.1); MONO % 8 % (0-9); NEUT # 5.4 x10^3uL (1.8-7.7); NEUT % 50 % (31-73); PLATELET COUNT 214 x10^3/uL (140-400); RED BLOOD COUNT 5.18 x10^6/uL (4.30-5.70); RED CELL DISTRIBUTION WIDTH 13.3 % (11.5-14.5)
[2020-06-21 22:45] LABS: ALBUMIN 3.6 g/dL (3.4-5.0); DIRECT BILIRUBIN 0.1 mg/dL (0.0-0.2); MAGNESIUM 1.4 mg/dL (1.8-2.4); TOTAL BILIRUBIN 0.3 mg/dL (0.2-1.0); TOTAL PROTEIN 6.5 g/dL (6.4-8.2)
--- NOTE | 2020-06-21 22:46 | RAD ---
XR CHEST 1V INDICATION: Reason: MSChange, dyspnea / Spl. Instructions: / History: . COMPARISON STUDY: None. FINDINGS: Lungs: Normal lung volume. No pulmonary mass or consolidation. The tracheobronchial tree and hilar st ructures are normal. Pleura: No pleural effusion or pneumothorax. Heart and Mediastinum: The cardiomediastinal silhouette is normal. The great vessels of the thorax ar e normal. Bones and Soft Tissues: The bones and soft tissues are within normal limits. IMPRESSION: No acute cardiopulmonary process. Electronically signed by: Drake Alvarez MD (06/21/2020 10:43 PM) [facility]
[2020-06-21] MEDS ORDERED: MAGNESIUM SULFATE 2GM 50 ML IV ONE (23:15)
--- NOTE | 2020-06-21 23:22 | RAD ---
CT Head W/O Contrast: History: Reason: syncope, fall, head and neck pain, intoxicated / Spl. Instructions: / History: Comparison: none Axial images were obtained without contrast. The song and white matter appears normal and symmetrical for the patients age. There is no mass effe ct, extraaxial fluid collections or hydrocephalus. There is no gross bleed. There is no focal loss of song-white matter distinction to suggest acute ischemia, i.e. stroke. Impression: No acute findings. End impression CT C-Spine without contrast: Clinical History: Reason: syncope, fall, head and neck pain, intoxicated / Spl. Instructions: / Hist ory: Technique: Axial helical images of the cervical spine were obtained without contrast, axial coronal and sagittal reconstruction was performed. Findings: There is no loss of vertebral body stature. There is no prevertebral soft tissue swelling. The vert ebral bodies are well aligned. There is straightening of the normal cervical lordosis which can be p ositional or could be chronic. The C1-C2 relationship is normal. The visualized osseous structures ap pear normal. Evaluation of the central canal is limited without contrast. There is multiple posterio r disc bulges resulting in flattening of the thecal sac. There does not appear to be gross flattening of the cervical cord. There is moderate narrowing of multiple neuroforamen. Impression: No acute findings. Clinical correlation suggested. PQRS Compliance Statement: One or more of the following individualized dose reduction techniques were utilized for this examinat ion: 1. Automated exposure control 2. Adjustment of the mA and/or kV according to patient size 3. Use of iterative reconstruction technique Electronically signed by: Darron Patel III, MD (06/21/2020 11:20 PM) [facility]
[2020-06-21 23:39] VITALS: BP 136/81
[2020-06-21 23:58] LABS: BARBITURATES NEG (NEG); BENZODIAZEPINES NEG (NEG); BILIRUBIN,URINE NEG (NEG); CANNABINOIDS NEG (NEG); CLARITY,URINE CLEAR; COCAINE NEG (NEG); COLOR,URINE YELLOW; GLUCOSE,URINE 100 mg/dL (NEG); METHADONE NEG (NEG); OPIATES NEG (NEG); PHENCYCLIDINE NEG (NEG)
[2020-06-21 23:59] LABS: BACTERIA,URINE 0 /HPF (0-FEW); NITRITE,URINE NEG (NEG); RBC,URINE 0 /HPF (0-2); SQUAMOUS EPITHELIAL CELL,UR OCC /LPF; UROBILINOGEN,URINE 0.2 mg/dL (0.2 mg/dL); WBC,URINE RARE /HPF (0-4)
[2020-06-22] LABS: AMPHETAMINE/METHAMPHETAMINE NEG (NEG)
--- NOTE | 2020-06-22 15:02 | EKG ---
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
== END 2020-06-22 00:05 | disposition home or self-care (01) ==
LOC: ER 21:50
DX: F10.20 Alcohol dependence, uncomplicated (principal); E11.42 Type 2 diabetes mellitus with diabetic polyneuropathy; E83.42 Hypomagnesemia; F31.9 Bipolar disorder, unspecified; F41.9 Anxiety disorder, unspecified; E78.00 Pure hypercholesterolemia, unspecified; I25.10 Atherosclerotic heart disease of native coronary artery without angina pectoris; G40.909 Epilepsy, unspecified, not intractable, without status epilepticus; F17.210 Nicotine dependence, cigarettes, uncomplicated; Y90.8 Blood alcohol level of 240 mg/100 ml or more
CPT/HCPCS: 36415; 70450; 71045; 72125; 80048; 80076; 80307; 81001; 82550; 83690; 83735; 83880; 84443; 84484; 85025; 85610; 93005; 96365; 96366; 96368; 99285; G0480; J3475; J7120

== ENCOUNTER 2020-11-09 00:15 | Emergency (ER) | payer SELFPAY ==
[~2020-11-09] VITALS: Ht 167.6 cm; Wt 84.8 kg
[2020-11-09 00:20] VITALS: BP 105/78
[2020-11-09] MEDS ORDERED: CONTRAST GIVEN. MC PRN (01:15)
--- NOTE | 2020-11-09 01:20 | PHYS DOC ---
Past History Past Medical History: Alcoholism, Anxiety, Bipolar, Diabetes, High Cholesterol, Hypertension, Pancreatitis, Other Past Surgical History: Appendectomy Smoking: Cigarettes Alcohol Use: Heavy Drug Use: None General Adult EDM: Chief Complaint: MULTIPLE COMPLAINTS HPI: HPI: 55-year-old male presents with report of chest discomfort, shortness of air, and abdominal pain with associated nausea and vomiting. Reports has been ongoing for the past several days. Denies known trauma. Denies fever or chills. Reports shortness of air and chest pain worse with deep inspiration. Denies leg swelling or calf tenderness. Denies history of DVT/PE. Review of Systems: Review of Systems: Constitutional: Denies fever or chills Eyes: Denies redness or eye pain HENT: Denies nasal congestion or sore throat Respiratory: Denies cough; reports shortness of breath Cardiovascular: Reports chest pain; denies palpitations GI: Reports abdominal pain, nausea, and vomiting : Denies dysuria or hematuria Musculoskeletal: Denies back pain or joint pain Integument: Denies rash or skin lesions Neurologic: Denies headache, focal weakness or sensory changes Complete systems were reviewed and found to be within normal limits, except as documented in this note. Current Medications: Current Meds: Current Medications Medications (Trade) Dose Ordered Sig/Rani Start Time Stop Time Status Last Admin Dose Admin Famotidine (Pepcid Vial) 20 mg 1X ONCE 11/09/20 01:30 11/09/20 01:31 Info (Do NOT chart on this entry -- for MONITORING) 1 each PRN DAILY PRN 11/09/20 01:15 11/11/20 01:14 Iohexol (Omnipaque 350 Mg/ml) 100 ml 1X ONCE 11/09/20 01:30 11/09/20 01:31 Ketorolac Tromethamine (Toradol 15mg Vial) 15 mg 1X ONCE 11/09/20 01:30 11/09/20 01:31 Ondansetron HCl (Zofran) 4 mg 1X ONCE 11/09/20 01:30 11/09/20 01:31 Sodium Chloride 1,000 ml @ 1,000 mls/hr 1X ONCE 11/09/20 01:30 11/09/20 02:29 Allergies: Allergies: Allergies Coded Allergies Type Severity Reaction Last Updated Verified No Known Drug Allergies 06/21/20 No Physical Exam: PE: Constitutional: Well developed, well nourished, no acute distress, non-toxic appearance HENT: Normocephalic, atraumatic Eyes: Conjunctiva normal, no discharge Neck: Normal range of motion, supple Lungs & Thorax: No respiratory distress, equal chest rise and fall Abdomen: Soft, diffuse tenderness, no guarding/rebound tenderness/distention Skin: Warm, dry, no erythema, no rash Back: No tenderness, no CVA tenderness Extremities: No tenderness, ROM intact, no edema Neurologic: Alert and oriented X 3, normal motor function, normal sensory function, no focal deficits noted Psychologic: Affect anxious, judgment normal EKG: EKG: @0113 NSR at 81bpm, NO ST elevation, QRS 90ms, QT/QTc 384/447ms, nonspecific t wave inversion to III Radiology/Procedures: Radiology/Procedures: PROCEDURE: CT ANGIO CHEST W ABD PEL W/ CTA chest abdomen and pelvis with contrast: History: Dyspnea. Chest pain and abdominal pain and abdominal distention Axial helical images of the chest abdomen and pelvis were obtained after the administration of 100 cc IV Omni 350 contrast. Timing is appropriate for arterial evaluation and multiplanar reconstruction was performed with separate imaging workstation including 3-D maximum intensity imaging. Comparison: none CTA OF THE CHEST WITH IV CONTRAST: The thoracic aorta appears normal. There is a normal origin of the great vessels from the aortic arch. The pulmonary arteries are well-opacified without filling defects. There is no mediastinal lymphadenopathy or hematoma. Lungs and pleural margins: A few linear opacities lung bases are likely discoid atelectasis. Impression: No acute findings. End Impression CTA OF THE ABDOMEN AND PELVIS WITH IV CONTRAST: COMPARISON: February 04, 2019 The gallbladder is well distended but otherwise appears normal. The appendix is not well seen. The aorta and great vessels are normal. This fat within the inguinal canal hernias bilaterally and there is a small segment of small bowel which approximates the right inguinal canal hernia. Liver: Hypoattenuating but homogeneous Spleen: Unremarkable Pancreas: Unremarkable Adrenal Glands: Unremarkable Kidneys: Small cyst the left was seen previously Evaluation of stomach and bowel is limited without oral contrast. Lymphadenopathy: no. Free fluid: no. Free air: no. The bladder appears normal without extravasation of contrast. Impression: 1. Fat-containing inguinal canal hernia. There is a short segment of small bowel which approximates the right inguinal canal hernia however this appears signi ficantly improved from the prior study. There is no CT evidence of obstruction or incarceration. 2. Fatty infiltration of the liver. End impression PQRS Compliance Statement: One or more of the following individualized dose reduction techniques were ut ilized for this examination: 1. Automated exposure control 2. Adjustment of the mA and/or kV according to patient size 3. Use of iterative reconstruction technique Electronically signed by: Darron Patel III, MD (11/09/2020 2:18 AM) [facility] Heart Score: C/O Chest Pain: Yes HEART Score for Chest Pain: HEART Score for Chest Pain Response (Comments) Value History Slighlty/Non-Suspicious 0 ECG Normal 0 Age >45 - < 65 1 Risk Factors >3 Risk Factors or Hx CAD 2 Troponin < Normal Limit 0 Total 3 Risk Factors: Risk Factors: DM, Current or recent (<one month) smoker, HTN, HLP, family history of CAD, obesity. Risk Scores: Score 0 - 3: 2.5% MACE over next 6 weeks - Discharge Home Score 4 - 6: 20.3% MACE over next 6 weeks - Admit for Clinical Observation Score 7 - 10: 72.7% MACE over next 6 weeks - Early Invasive Strategies Course & Med Decision Making: Course & Med Decision Making Pertinent Labs and Imaging studies reviewed. (See chart for details) Patient presents with chest discomfort/pleuritic pain, shortness of air, abdominal pain, and nausea and vomiting. Abdomen nonperitoneal. Cannot fully exclude PE. EKG stable. Labs obtained and posted to chart. Troponin within normal limits. CTA chest and CT abdomen/pelvis with IV contrast obtained without acute finding. Notation of fat-containing inguinal hernia noted which appears improved from prior evaluation. Patient stable for discharge with outpatient follow-up with PCP/GI. GI referral provided. Discussed findings and plan with patient, who acknowledges understanding and agreement. Dragon Disclaimer: Dragon Disclaimer: This electronic medical record was generated, in whole or in part, using a voice recognition dictation system. Departure Departure: Impression: Primary Impression: Atypical chest pain Additional Impression: Abdominal pain Qualified Codes: R10.9 - Unspecified abdominal pain Disposition: HOME / SELF CARE / HOMELESS Condition: STABLE Referrals: COREY GAYLE (PCP) HOME GARCIA MD Patient Instructions: Abdominal Pain, [id number], Chest Pain (Nonspecific), Hqab-[id number] Scripts Hyoscyamine Sulfate (LEVSIN-SL) 0.125 Mg Tab.subl 0.125 MG SL Q4-6HRS PRN for PAIN, #14 TAB Prov: DICK OCHOA DO 11/09/20 Famotidine (PEPCID) 20 Mg Tablet 1 TAB PO BID for Gastritis, #20 TAB Prov: DICK OCHOA DO 11/09/20 Ondansetron (ONDANSETRON ODT) 4 Mg Tab.rapdis 1 TAB PO PRN Q6-8HRS PRN for NAUSEA, #16 TAB Prov: DICK OCHOA DO 11/09/20 DICK OCHOA DO November 09, 2020 01:20
[2020-11-09] MEDS: IV NORMAL SALINE 1,000ML 1,000 ML IV ONE (01:49)
[2020-11-09] MEDS: ONDANSETRON PF 4 MG/2 ML VIAL. IVP ONE (01:50)
[2020-11-09] MEDS: FAMOTIDINE 20 MG/2 ML VIAL IVP ONE (01:50)
[2020-11-09] MEDS: KETOROLAC 15 MG/ML VIAL. IVP ONE (01:50)
[2020-11-09] MEDS: IOHEXOL 350 MG/ML 100 ML VIAL. IV ONE (01:56)
--- NOTE | 2020-11-09 01:56 | EKG ---
[address] [address] Test Date: 2020-11-09 Test Time: 01:13:17 Pat Name: XI LOPEZ Department: Room: Gender: M Gender Studies Professor: : 1965 Requested By: DICK OCHOA Order Number: [id number] Reading MD: Measurements Intervals [place] Rate: 81 P: 48 MN: 138 QRS: -6 QRSD: 90 T: 5 QT: 384 QTc: 447 Interpretive Statements SINUS RHYTHM LEFTWARD AXIS OTHERWISE NORMAL ECG RI6.02 No previous ECG available for comparison
--- NOTE | 2020-11-09 02:20 | RAD ---
CTA chest abdomen and pelvis with contrast: History: Dyspnea. Chest pain and abdominal pain and abdominal distention Axial helical images of the chest abdomen and pelvis were obtained after the administration of 100 cc IV Omni 350 contrast. Timing is appropriate for arterial evaluation and multiplanar reconstruction w as performed with separate imaging workstation including 3-D maximum intensity imaging. Comparison: none CTA OF THE CHEST WITH IV CONTRAST: The thoracic aorta appears normal. There is a normal origin of the great vessels from the aortic arch . The pulmonary arteries are well-opacified without filling defects. There is no mediastinal lymphadenopathy or hematoma. Lungs and pleural margins: A few linear opacities lung bases are likely discoid atelectasis. Impression: No acute findings. End Impression CTA OF THE ABDOMEN AND PELVIS WITH IV CONTRAST: COMPARISON: February 04, 2019 The gallbladder is well distended but otherwise appears normal. The appendix is not well seen. The aorta and great vessels are normal. This fat within the inguinal canal hernias bilaterally and there is a small segment of small bowel wh ich approximates the right inguinal canal hernia. Liver: Hypoattenuating but homogeneous Spleen: Unremarkable Pancreas: Unremarkable Adrenal Glands: Unremarkable Kidneys: Small cyst the left was seen previously Evaluation of stomach and bowel is limited without oral contrast. Lymphadenopathy: no. Free fluid: no. Free air: no. The bladder appears normal without extravasation of contrast. Impression: 1. Fat-containing inguinal canal hernia. There is a short segment of small bowel which approximates t he right inguinal canal hernia however this appears significantly improved from the prior study. Ther e is no CT evidence of obstruction or incarceration. 2. Fatty infiltration of the liver. End impression PQRS Compliance Statement: One or more of the following individualized dose reduction techniques were utilized for this examinat ion: 1. Automated exposure control 2. Adjustment of the mA and/or kV according to patient size 3. Use of iterative reconstruction technique Electronically signed by: Darron Patel III, MD (11/09/2020 2:18 AM) [facility]
[2020-11-09 02:36] LABS: BASO % 0 % (0-3); EOS # 0.5 x10^3/uL (0.0-0.7); EOS % 6 % (0-3); HEMATOCRIT 47.5 % (39.0-53.0); HEMOGLOBIN 16.1 g/dL (13.0-17.5); LYMPH # 3.5 x10^3/uL (1.0-4.8); LYMPH % 38 % (24-48); MEAN CORPUSCULAR HEMOGLOBIN 32 pg (25-35); MEAN CORPUSCULAR HGB CONC 34 g/dL (31-37); MEAN CORPUSCULAR VOLUME 94 fL (79-100); MONO # 0.7 x10^3/uL (0.0-1.1); MONO % 8 % (0-9); NEUT # 4.5 x10^3uL (1.8-7.7); NEUT % 49 % (31-73); PLATELET COUNT 191 x10^3/uL (140-400); RED BLOOD COUNT 5.06 x10^6/uL (4.30-5.70); RED CELL DISTRIBUTION WIDTH 13.4 % (11.5-14.5); WHITE BLOOD COUNT 9.2 x10^3/uL (4.0-11.0)
[2020-11-09] MEDS ORDERED: HYOS0.1265 SL (03:00)
[2020-11-09] MEDS ORDERED: ONDA4TAB12 PO (03:00)
[2020-11-09] MEDS ORDERED: FAMO-63 PO (03:00)
[2020-11-09 03:16] LABS: ANION GAP 26 (6-14); BLOOD UREA NITROGEN 8 mg/dL (8-26); BUN/CREATININE RATIO 13 (6-20); CALCIUM 8.9 mg/dL (8.5-10.1); CARBON DIOXIDE 16 mmol/L (21-32); CHLORIDE 99 mmol/L (98-107); CREATININE 0.6 mg/dL (0.7-1.3); GFR 140.9; GLUCOSE 98 mg/dL (70-99); POTASSIUM 3.5 mmol/L (3.5-5.1); SODIUM 141 mmol/L (136-145)
[2020-11-09 03:33] LABS: ALBUMIN 3.5 g/dL (3.4-5.0); ALK PHOS 47 U/L (46-116); ALT (SGPT) 51 U/L (16-63); AST (SGOT) 21 U/L (15-37); LIPASE 60 U/L (73-393); MAGNESIUM 1.8 mg/dL (1.8-2.4); TOTAL BILIRUBIN 0.3 mg/dL (0.2-1.0); TOTAL PROTEIN 6.9 g/dL (6.4-8.2)
== END 2020-11-09 04:15 | disposition home or self-care (01) ==
LOC: ER 00:15
DX: R07.89 Other chest pain (principal); R10.84 Generalized abdominal pain; R11.2 Nausea with vomiting, unspecified; F41.9 Anxiety disorder, unspecified; F31.9 Bipolar disorder, unspecified; E11.9 Type 2 diabetes mellitus without complications; E78.00 Pure hypercholesterolemia, unspecified; I10 Essential (primary) hypertension; F17.210 Nicotine dependence, cigarettes, uncomplicated; F10.20 Alcohol dependence, uncomplicated; Z90.49 Acquired absence of other specified parts of digestive tract; Y90.9 Presence of alcohol in blood, level not specified
CPT/HCPCS: 36415; 71275; 74177; 80053; 82553; 83690; 83735; 84484; 85025; 93005; 96374; 96375; 99285; J1885; J2405; J3490; J7030; Q9967; 96361

== ENCOUNTER 2021-02-22 21:25 | Emergency (ER) | payer SELFPAY ==
[~2021-02-22] VITALS: Ht 167.6 cm; Wt 78.8 kg
[~2021-02-22 21:25] MED LIST changes: +FAMO-63 PO; +HYOS0.1265 SL; -LISI2.5T PO; +LISI2.5T12 PO; +ONDA4TAB12 PO
--- NOTE | 2021-02-22 21:51 | PHYS DOC ---
Past History Past Medical History: Bipolar, CAD, Depression, Diabetes, Hypertension, Other Additional Past Medical Histor: OCD, Affective disorder Past Surgical History: Appendectomy Smoking: Cigarettes Alcohol Use: Occasionally Drug Use: None Adult General Chief Complaint Chief Complaint: COUGH HPI HPI Patient is a 55-year-old male who presents wanting a Covid swab. States over the last couple of days he has had some body aches and he has an intermittent, scratchy cough. Denies any recent traumas, travels, fevers, chest pain, shortness of breath, abdominal pain, nausea, vomiting, diarrhea, dysuria, hematuria or blood in the stool. Denies any known ill contacts. States he is eating and drinking normally for him. States he is making urine and stool normally for him. Review of Systems Review of Systems Review of systems otherwise unremarkable except noted in HPI Allergies Allergies Allergies Coded Allergies Type Severity Reaction Last Updated Verified No Known Drug Allergies 06/21/20 No Physical Exam Physical Exam Constitutional: Well developed, well nourished, no acute distress, non-toxic appearance. [] HENT: Normocephalic, atraumatic, bilateral external ears normal, oropharynx moist, no oral exudates, nose normal. [] Eyes: conjunctiva normal, no discharge. [] Neck: Normal range of motion, no tenderness, supple, no stridor. [] Cardiovascular:Heart rate regular rhythm, no murmur [] Lungs & Thorax: Bilateral breath sounds clear to auscultation [] Abdomen: soft, no tenderness, no masses, no pulsatile masses. [] Skin: Warm, dry, no erythema, no rash. [] Extremities: No tenderness, no cyanosis, no clubbing, ROM intact, no edema. [] Neurologic: Alert and oriented X 3, no focal deficits noted. [] Psychologic: Affect normal, judgement normal, mood normal. [] Current Patient Data Vital Signs Vital Signs Date Time Temp Pulse Resp B/P (MAP) Pulse Ox O2 Delivery O2 Flow Rate FiO2 02/22/21 21:39 97.8 83 16 119/71 96 Room Air EKG EKG [] Radiology/Procedures Radiology/Procedures [] Heart Score C/O Chest Pain: No Risk Factors: Risk Factors: DM, Current or recent (<one month) smoker, HTN, HLP, family history of CAD, obesity. Risk Scores: Risk Factors: DM, Current or recent (<one month) smoker, HTN, HLP, family history of CAD, obesity. Course & Med Decision Making Course & Med Decision Making Patient is a 55-year-old male who presents for Covid swab, body aches and cough Vital signs not concerning. Physical exam noted above. Patient denied Tylenol, ibuprofen, Benadryl or cough syrup. EKG noted above and normal. Chest x-ray not concerning. Patient asymptomatic in the ED. Discussed differential diagnosis and symptomatic management at home. Advised to follow-up in the morning with primary care physician. Gave strict return precautions to the ED. Patient grateful, verbalized understanding and agreed with plan of discharge. [] Dragon Disclaimer Dragon Disclaimer This electronic medical record was generated, in whole or in part, using a voice recognition dictation system. Departure Departure: Impression: Primary Impression: Body aches Additional Impression: Cough Disposition: HOME / SELF CARE / HOMELESS Condition: GOOD Referrals: COREY GAYLE (PCP) Patient Instructions: Viral Syndrome Additional Instructions: You have been tested for or diagnosed with COVID-19. It is an infection caused by a new type of coronavirus. COVID-19 will cause cold-like or mild flu symptoms in most. It can cause more severe symptoms like problems breathing in some. There is no treatment for COVID-19. The body will clear the infection over time. Self-care will help to ease discomfort. Steps to Take: Self-Care Rest as needed. Healthy habits may help you feel better. Steps include: Choose healthy foods including fruits and vegetables. Drink water throughout the day. Get plenty of sleep each night. If you smoke, try to quit. It may ease breathing. Avoid alcohol. Keep Others Healthy The virus can spread to others. Droplets are released every time you sneeze or cough. The droplets can get into the mouth, nose, or eyes of people near you and lead to infection. To lower the chances of spreading COVID-19 to others: Stay at home until your doctor has said it is safe to leave. If you tested positive this will mean staying isolated until both of the following are true: At least 7 days have passed since the start of illness. You are free of fever for at least 72 hours without the use of medicine. During this time: - Avoid public areas, events, or transportation. Do not return to work or school until your doctor has said it is safe to do so. - Call ahead if you need to go to a medical center. Let them know you may have COVID-19. It will help them guide you where to go. They may also ask you to wear a facemask when you come to the office. - If you call for emergency medical services, let them know you may have COVID- 19. While at home: - Try to avoid close contact with others. Stay about 6 feet away. - If possible, spend most of your time in a separate room from others. - Use a face mask if you will be in close contact with others such as sharing a room or vehicle. - Have someone wipe down common surfaces in the home. Use household sales and in home delivery specialist every day on areas like doorknobs, counters, or sinks. - Cough or sneeze into a tissue. Throw the tissue away right after use. If a tissue is not available, cough or sneeze into your elbow. - Wash your hands often. Wash them after sneezing or coughing. Use soap and water and wash for at least 20 seconds. Alcohol based hand truck cleaner can be used if soap and water is not available. - Do not prepare food for others. Avoid sharing personal items like forks, spoons, or toothbrushes. - Avoid close contact with pets while you are sick. There is no evidence of the virus passing to pets. This is a safety step until more is known about this virus. Isolation can be frustrating. Social interaction can help. Keep in touch with friends and family through phone and tech options. You can still interact with others in your home, just keep a safe distance of about 6 feet. Follow-up: Your doctors office will check in with you to see if there are any changes in your health. You may be asked to keep track of symptoms to share with them. They will also let you know when you are clear to be in public again. Problems to Look Out For: Contact your doctor if your recovery is not going as you expect. Get emergency care if you have problems such as: - Trouble breathing - Nonstop chest pain or pressure - Changes in awareness, confusion, or problems waking - Lips or face have bluish color - Worsening of symptoms If you think you have an emergency, call for emergency medical services right away. [facility] Problem Qualifiers RAGHAVENDRA THIBODEAUX MD Feb 22, 2021 21:51
[2021-02-22 22:40] VITALS: BP 115/79
--- NOTE | 2021-02-22 22:42 | RAD ---
Exam: Chest one view INDICATION: Cough TECHNIQUE: Frontal view of the chest Comparisons: 06/21/2020 FINDINGS: The cardiomediastinal silhouette and pulmonary vessels are within normal limits. The lung and pleural spaces are clear. IMPRESSION: No acute cardiopulmonary process. Electronically signed by: Ji Rosas MD (02/22/2021 10:40 PM) [place]
--- NOTE | 2021-02-23 03:12 | EKG ---
[address] [address] Test Date: 2021-02-22 Test Time: 21:53:25 Pat Name: XI LOPEZ Department: Room: Gender: M Ct Scan Technician: ZOIE : [id number] Requested By: RAGHAVENDRA THIBODEAUX Order Number: [id number] Reading MD: Nate Paiz MD Measurements Intervals [place] Rate: 85 P: 44 SD: 136 QRS: 2 QRSD: 84 T: 25 QT: 370 QTc: 440 Interpretive Statements SINUS RHYTHM Electronically Signed On 02-23-2021 8:51:07 CDT by Nate Paiz MD
== END 2021-02-22 23:00 | disposition home or self-care (01) ==
LOC: ER 21:25
DX: M79.10 Myalgia, unspecified site (principal); R05 Cough; Z20.822 Contact with and (suspected) exposure to COVID-19; F31.9 Bipolar disorder, unspecified; I25.10 Atherosclerotic heart disease of native coronary artery without angina pectoris; E11.9 Type 2 diabetes mellitus without complications; I10 Essential (primary) hypertension; F17.210 Nicotine dependence, cigarettes, uncomplicated
CPT/HCPCS: 71045; 93005; 99285; U0003